=== PATIENT | female | born 2000 | race American Indian/Alaskan Native ===

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

== ENCOUNTER 2022-05-07 20:51 | Emergency (ER) | payer OTHER ==
[2022-05-07 21:09] VITALS: BP 138/76; PULSE 131
== END 2022-05-07 22:10 | disposition home or self-care (01) ==
LOC: JP.ED 20:51
DX: J20.9 Acute bronchitis, unspecified (principal); F17.210 Nicotine dependence, cigarettes, uncomplicated; Z79.899 Other long term (current) drug therapy; Z86.16 Personal history of COVID-19
CPT/HCPCS: 36415; 71046; 71046-26; 85025; 86140; 99283